=== PATIENT | male | born 1965 | race Caucasian/White ===

== ENCOUNTER → 2017-01-12 | Outpatient (CLI) | payer OTHER | LOC: FIMAGING 15:03 | PROVIDERS: ATTEND Physician Assistant Surgical | DX: M51.36 Other intervertebral disc degeneration, lumbar region (principal); Z98.1 Arthrodesis status ==

== ENCOUNTER → 2017-05-02 | Outpatient (CLI) | payer OTHER | LOC: CIMAGING 07:45 | PROVIDERS: ATTEND Internal Medicine | DX: K76.0 Fatty (change of) liver, not elsewhere classified (principal); R53.83 Other fatigue; R06.02 Shortness of breath | CPT/HCPCS: 71250-PO ==

== ENCOUNTER 2017-10-20 06:48 | Day surgery (SDC) | payer OTHER ==
[2017-10-20] MEDS ORDERED: ceFAZolin 2 GM/SWFI 2 GM/20 ML SYR IVP ONE (07:24)
[2017-10-20] MEDS ORDERED: LR 1,000 ML IV SCH (07:24)
[2017-10-20] MEDS ORDERED: LR 1,000 ML IV ONE (07:25)
[2017-10-20] MEDS ORDERED: ceFAZolin 2 GM/DEXTROSE 100 ML IV ONE (07:30)
[2017-10-20] MEDS ORDERED: EPINEPHrine 1 MG/ML INJ ONE (07:53)
[2017-10-20] MEDS ORDERED: EPINEPHrine 30 MG/30 ML MDV (0.1 MG/0.1 ML) ONE (07:53)
[2017-10-20] MEDS ORDERED: BUPIVACAINE 0.5% 30 ML SDV ONE ×2 (07:53→09:00)
--- NOTE | 2017-10-20 08:39 | PDHPUP ---
History & Physical Update H&P update statement: This history and physical update is based on an assessment of the patient which was completed after admission or registration (within 24 hours), but prior to the surgery/procedure. H&P update: H&P reviewed & patient examined, no change in patient's condition since H&P completed
[2017-10-20] MEDS ORDERED: MIDAZOLAM 2 MG/2 ML VIAL IVP ONE (08:42)
--- NOTE | 2017-10-20 08:45 | PDANEPAE ---
ANE History of Present Illness R shoulder arthroscopy ANE Past Medical History - Cardiovascular History Hx Hypertension: Yes Hx Arrhythmias: Yes Hx Chest Pain: No Hx Coronary Artery / Peripheral Vascular Disease: Yes Hx CHF / Valvular Disease: No Hx Palpitations: Yes Cardiovascular History Comment: HYPERLIPIDEMIA, atrial septal aneurysm. Patient reports usual BP at home is 120/80 - Pulmonary History Hx COPD: No Hx Asthma/Reactive Airway Disease: No Hx Recent Upper Respiratory Infection: Yes Hx Oxygen in Use at Home: No O2 in Use at Home (L/minute): O2 NOC W/CPAP Hx Sleep Apnea: Yes Sleep Apnea Screening Result - Last Documented: Positive Pulmonary History Comment: POS SLEEP APNEA W/CPAP. HX PNEUMONIA IN PAST. 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 uses sumatryptan prn - Endocrine History Hx Diabetes: No Hypothyroid: Yes Hyperthyroid: No Obesity: moderate - Renal History Hx Renal Disorders: Yes Renal History Comment: kidney stones X 2 - Liver History Hx Hepatic Disorders: No Hepatic History Comment: MILD ABN ENZYME LEVELS, fatty liver by CT - Neurological & Psychiatric Hx Hx Neurological and Psychiatric Disorders: Yes Neurological / Psychiatric History Comment: ANXIETY/DEPRESSION. Atypical migraines, s/p TIA - Cancer History Hx Cancer: No - Congenital Disorder History Hx Congenital Disorders: No - GI History GERD: moderate Hx Gastrointestinal Disorders: Yes - Other Health History Other Health History: HX - GERD - Chronic Pain History Chronic Pain: Yes (JOINTS GENERALIZED) - Surgical History Prior Surgeries: R KNEE SCOPE. SPINAL INJS. SPINAL FUSION - LUMBAR X2. RICKY CARPAL TUNNEL. LITHOTRIPSY. RUBINA. ENDOSCOPY & COLONOSCOPY. VASECTOMY ANE Review of Systems Review of Systems: - Exercise capacity METS (RN): 4 METS ANE Patient History - Allergies Allergies/Adverse Reactions: levetiracetam [From [facility]] Allergy (Verified 10/20/17 07:42) - Home Medications Home Medications: Melatonin 3 mg PO HS 03/21/11 [Last Taken 10/19/17] Aspirin [Aspirin 81mg (OTC)] 81 mg PO DAILY 12/14/12 [Last Taken 1 Week Ago ~] Levothyroxine [Synthroid 125 mcg (RX)] 125 mcg PO DAILY06 12/14/12 [Last Taken 10/20/17] Liothyronine Sodium [Cytomel 5 mcg (RX)] 5 mcg PO DAILY 12/14/12 [Last Taken ] Testosterone IM [Testosterone 100mg/ml IM inj (RX)] 50 mg IM FR 12/14/12 [Last Taken 10/14/17] clonazePAM [Klonopin (RX)] 1 mg PO DAILY 12/14/12 [Last Taken 10/19/17] Amlodipine Besylate 10/19/17 [Last Taken 10/20/17] Ibuprofen 10/19/17 [Last Taken 10/17/17] Lisinopril 10/19/17 [Last Taken 10/19/17] Metoprolol [place]/Hydrochlorothiaz [Metoprolol ER-Hctz 100-12.5 mg] 100 mg PO DAILY 10/20/17 [Last Taken 10/20/17] - NPO status NPO Since - Liquids (Date): 10/20/17 NPO Since - Liquids (Time): 06:15 NPO Since - Solids (Date): 10/19/17 NPO Since - Solids (Time): 21:00 - Smoking Hx Smoking Status: Never smoked - Family Anes Hx Family Hx Anesthesia Complications: NEG ANE Labs/Vital Signs - Vital Signs Blood Pressure: 143/86 Heart Rate: 83 Respiratory Rate: 18 O2 Sat (%): 92 Height: 182.88 cm Weight: 102.058 kg ANE Physical Exam - Airway Neck exam: FROM Mallampati Score: Class 1 Mouth exam: normal dental/mouth exam (R upper front cap) - Pulmonary Pulmonary: clear to auscultation - Cardiovascular Cardiovascular: regular rate and rhythym ANE Anesthesia Plan Anesthesia Plan: general endotracheal anesthesia Regional Anesthesia: supraclavicular BP NB
[2017-10-20] MEDS ORDERED: fentaNYL 250 MCG/5 ML INJ ONE (08:59)
[2017-10-20] MEDS ORDERED: ROCURONIUM 50 MG/5 ML VIAL ONE (09:00)
[2017-10-20] MEDS ORDERED: ROPIVACAINE HCL 150 MG/30 ML INJ ONE ×2 (09:00)
[2017-10-20] MEDS ORDERED: DEXAMETHASONE 4 MG/ML VIAL ONE (09:00)
[2017-10-20] MEDS ORDERED: PROPOFOL 200 MG/20 ML VIAL ONE (09:00)
[2017-10-20] MEDS ORDERED: clonIDINE 1 MG/10 ML VIAL EP ONE (09:00)
[2017-10-20] MEDS ORDERED: MIDAZOLAM 2 MG/2 ML VIAL ONE (09:11)
[2017-10-20] MEDS ORDERED: fentaNYL 100 MCG/2 ML INJ ONE (10:37)
[2017-10-20] MEDS ORDERED: GLYCOPYRROLATE 0.2 MG/1 ML VIAL ONE ×2 (10:40)
[2017-10-20] MEDS ORDERED: ONDANSETRON 4 MG/2 ML VIAL ONE (10:40)
[2017-10-20] MEDS ORDERED: NEOSTIGMINE METHYLSULFATE 3 MG/3 ML SYR ONE (10:40)
[2017-10-20] MEDS ORDERED: ONDANSETRON 4 MG/2 ML VIAL IVP PRN ×2 (10:46→11:47)
[2017-10-20] MEDS ORDERED: NALOXONE HCL 0.4 MG/ML INJ IVP PRN (10:46)
[2017-10-20] MEDS ORDERED: oxyCODONE IR 5 MG TAB PO PRN (10:46)
[2017-10-20] MEDS ORDERED: HYDROmorphONE/DILAUDID 2 MG/ML INJ IVP PRN (10:46)
[2017-10-20] MEDS ORDERED: fentaNYL 100 MCG/2 ML INJ IVP PRN (10:46)
[2017-10-20] MEDS ORDERED: ACETAMINOPHEN 500 MG TAB PO PRN (10:46)
[2017-10-20] MEDS ORDERED: ePHEDrine SULFATE 25 MG/5 ML SYR ONE (10:50)
[2017-10-20] MEDS ORDERED: PHENYLEPHRINE HCL 100 MCG/ML SYR ONE (10:56)
[2017-10-20] MEDS ORDERED: OXYCODONE/APAP 5/325 TAB PO PRN (11:47)
[2017-10-20] MEDS ORDERED: ONDANSETRON DISINTEGRATING 4 MG TAB PO PRN (11:47)
--- NOTE | 2017-10-20 11:47 | POSTOPPROG ---
Post Op Note Date of Operation: 10/20/17 Surgeon: Maryanne Rosario Wallpaperer: Tasha Rhoades Anesthesiologist: Dr. Jarod Bar Anesthesia: GET(General Endotracheal) Pre-op Diagnosis: right shoulder impingement, biceps pathology Post-op Diagnosis: right shoulder impingement, biceps pathology Indication: right shoulder pain Procedure: right shoulder SAD, DCE, debridement, biceps tenodesis, bone marrow aspirat Inf/Abcess present in the surg proc area at time of surgery?: No EBL: Minimal Complications: none
--- NOTE | 2017-10-20 11:55 | SOAPPROG ---
SOAP Progress Note Assessment/Plan: Assessment/Plan: 51y/o male s/p right shoulder SAD, DCE, debridement, biceps tenodesis, bone marrow aspiration - orders as written - will send in prescription for Duexis to patient's pharmacy as discussed - sling to be worn, avoid bicep ROM - dc when PACU criteria met - call with issues or concerns 10/20/17 11:54 Subjective: No pain Objective: Vital Signs Temp Pulse Resp BP Pulse Ox 36.4 C 83 18 143/86 H 92 10/20/17 07:30 10/20/17 10:46 10/20/17 10:46 10/20/17 10:46 10/20/17 10:46 NAD, waking from anesthesia EOMi, face symmetric MAEx4 incisions clean, dressed ICD10 Worksheet Patient Problems: Problems Problem Status Onset Transient ischemic attack Active
[2017-10-20] MEDS ORDERED: KETOROLAC 15 MG/1 ML SDV IVP ONE (12:11)
[2017-10-20 12:58] VITALS: BP 118/76
--- NOTE | 2017-10-20 13:02 | POSTANESTH ---
Post Anesthetic Evaluation Cardiovascular Status: Similar to Pre-Op Cond Respiratory Status: Similar to Pre-op Cond. Level of Consciousness/Mental Status: Can Participate in Eval Pain Control: Adequate, Prn Tx Ordered Nausea/Vomiting Control: Adequate, Prn Tx Ordered Complications Possibly Related to Anesthesia: None Noted
--- NOTE | 2017-10-20 14:32 | GOP ---
[f rep st] OPERATIVE REPORT DATE OF OPERATION: 10/20/2017 SURGEON: Maryanne Rosario MD TWENTY ONE DEALER: RICH Salinas. ANESTHESIA: General with interscalene block. PREOPERATIVE DIAGNOSIS: Biceps tendonitis with superior labrum anterior and posterior tear, impingem ent syndrome, and acromioclavicular arthritis, right shoulder. POSTOPERATIVE DIAGNOSIS: Biceps tendonitis with superior labrum anterior and posterior tear, impinge ment syndrome, and acromioclavicular arthritis, right shoulder. PROCEDURE PERFORMED: 1. Arthroscopic debridement of SLAP tear with subacromial decompression, distal clavicle excision, a nd biceps tenodesis, right shoulder. 2. Bone marrow biopsy. FINDINGS: The diagnostic arthroscopy of the right shoulder was performed with the following findings . The glenohumeral joint was normal in appearance. The articular cartilage was normal. There was n o chondromalacia. The labrum was inspected and there was a large SLAP tear extending from the 10 o'c lock to the 2 o'clock position with instability of the biceps anchor. There was a bifid biceps tendo n with 1 segment extending down to the subscapularis tendon. The 2nd ran its normal course through t he joint. There was instability of the biceps anchor. The inferior portion of the bifid biceps tend on was released from the subscapularis tendon and then the biceps tendon was released for later tenod esis. Extensive debridement of the superior labrum was performed. The rotator cuff was inspected an d the patient was noted to have mild partial thickness tearing of the articular side involving the an terior fibers of the supraspinatus. The remainder of the rotator cuff was normal including the subsc apularis. The scope was then placed in the subacromial space and the patient had severe subacromial bursitis. The subacromial bursa was debrided. The rotator cuff was inspected from the bursal side a nd noted to be normal in appearance. The patient did have a large anterolateral subacromial spur, wh ich was removed with the bur. Approximately 6-7 mm of the thickness of the anterolateral acromion wa s removed. The subacromial decompression was carried across to the AC joint. The patient had a larg e spur on the inferior aspect of the clavicle, as well. Once the subacromial decompression was compl eted, the undersurface the acromion was smoothed with a rasp and then the instrumentation was removed . A 3 cm incision was made along the distal end of the clavicle. Incision was carried down through the subcutaneous tissue to the AC joint. The AC joint was incised in a T-fashion and the fascia was retracted. The distal 1 cm of the clavicle was excised. The patient was noted to have severe degene rative changes in the AC joint. Finally, the biceps tendon was retrieved from the bicipital groove a nd a drill hole was placed at the base of the bicipital groove. The tendon was inserted and fixated with a 7 x 23 [employer] tenodesis screw. Excellent fixation was obtained. ESTIMATED BLOOD LOSS: Minimal. DESCRIPTION OF PROCEDURE: The patient was taken to the operating room, placed in the supine position on the operating table. Following placement of a supraclavicular block and induction of adequate ge neral inhalation anesthesia, the patient was turned to the lateral decubitus position and the shoulde r and arm were prepped and draped in usual sterile manner. The patient received 2 g of IV Ancef. Th e arthroscope was introduced through a posterior portal and the instrumentation through an anterior p ortal. A diagnostic arthroscopy was performed with the above-noted findings. Our attention was turn ed first to the intra-articular pathology. The shaver was used to debride the SLAP tear and the sola ps tendon was released with a basket. Once this was completed, the instruments were placed in the delarosa bacromial space, and a lateral working portal was created. Again, extensive debridement of the subac romial space was performed. The undersurface of the acromion was cleared and then a subacromial deco mpression was performed. The rasp was used to smooth the undersurface of the acromion. Excellent de compression of the subacromial space was achieved. The instrumentation was then removed, and a 3 cm incision was made along the distal on the clavicle. Incision was carried down through the subcutaneo us tissue to the AC joint. The fascia overlying the AC joint was incised in a T fashion and retracte d and then, using the saw, the distal 1 cm of the clavicle was excised. The wound was irrigated out and the fascia was repaired using 0 Vicryl followed by 2-0 Vicryl in the subcutaneous tissue, and 4-0 Vicryl in the skin. Steri-Strips were applied. Next, the patient was turned back to the beach leonides r position and a 4 cm incision was made along the bicipital groove. Incision was carried down throug h subcutaneous tissue to the deltoid. The deltoid was split in line with the incision and retracted with the [place] retractor. The bicipital groove was located and the tendon was retrieved. A drill h ole was placed at the base of the bicipital groove and then the tendon was inserted and fixated with a 7 x 23 Bio tenodesis screw. The bone marrow biopsy was taken from the humerus and sent to patholog y for evaluation. The wound was irrigated and closed using 2-0 Vicryl followed by 4-0 Vicryl in a ru nning subcuticular fashion. Steri-Strips and sterile dressings were applied. The patient tolerated the procedure well. There were no complications. Estimated blood loss minimal. Final sponge, needl e counts were correct. The patient was transported to the recovery room in good condition. /[id number]/MODL
== END 2017-10-20 14:30 | disposition home or self-care (01) ==
LOC: FSGY 06:48
PROVIDERS: ATTEND Orthopaedic Surgery
PROC: 0LS10ZZ Reposition Right Shoulder Tendon, Open Approach (ICD-10-PCS; principal; 2017-10-20 08:45)
PROC: [UNRECOGNIZED PROCEDURE] (principal; 2017-10-20 08:45)
PROC: 0RNJ4ZZ Release Right Shoulder Joint, Percutaneous Endoscopic Approach (ICD-10-PCS; principal; 2017-10-20 08:45)
PROC: 07DR0ZX Extraction of Iliac Bone Marrow, Open Approach, Diagnostic (ICD-10-PCS; principal; 2017-10-20 08:45)
DX: M75.41 Impingement syndrome of right shoulder (principal); M75.21 Bicipital tendinitis, right shoulder; M19.011 Primary osteoarthritis, right shoulder; M24.111 Other articular cartilage disorders, right shoulder; I10 Essential (primary) hypertension; E78.5 Hyperlipidemia, unspecified; G47.33 Obstructive sleep apnea (adult) (pediatric); Z86.73 Personal history of transient ischemic attack (TIA), and cerebral infarction without residual deficits; Z98.1 Arthrodesis status
CPT/HCPCS: C1713; J0171; J0690; J0735; J1100; J1885; J2250; J2370; J2405; J2704; J2710; J2795; J3010

== ENCOUNTER → 2018-04-19 | Outpatient (CLI) | payer OTHER | LOC: FIMAGING 11:44 | PROVIDERS: ATTEND Internal Medicine Cardiovascular Disease | DX: M79.604 Pain in right leg (principal); M79.605 Pain in left leg; R06.02 Shortness of breath ==

== ENCOUNTER 2018-05-17 06:35 | Day surgery (SDC) | payer OTHER ==
[2018-05-17] MEDS ORDERED: fentaNYL 100 MCG/2 ML INJ IVP ONE (06:37)
[2018-05-17] MEDS ORDERED: BENZOCAINE UNIT DOSE SPRAY HURRICAINE MM ONE (06:37)
[2018-05-17] MEDS ORDERED: MIDAZOLAM 2 MG/2 ML VIAL IVP ONE (06:37)
[2018-05-17] MEDS ORDERED: NS 500 ML IV ONE (06:37)
[2018-05-17 07:05] LABS: PLATELET COUNT 244 10^3/uL (150-400)
--- NOTE | 2018-05-17 07:19 | PDANEPAE ---
ANE History of Present Illness hx of TIA and stroke ANE Past Medical History - Cardiovascular History Hx Hypertension: Yes Hx Arrhythmias: Yes Hx Chest Pain: No Hx Coronary Artery / Peripheral Vascular Disease: Yes Hx CHF / Valvular Disease: No Hx Palpitations: Yes Cardiovascular History Comment: HYPERLIPIDEMIA, atrial septal aneurysm. Patient reports usual BP at home is 120/80 - Pulmonary History Hx COPD: No Hx Asthma/Reactive Airway Disease: No Hx Recent Upper Respiratory Infection: Yes Hx Oxygen in Use at Home: No Hx Sleep Apnea: Yes Pulmonary History Comment: POS SLEEP APNEA W/CPAP. HX PNEUMONIA IN PAST. Had URI about 3 weeks ago - Neurologic History Hx Cerebrovascular Accident: No Hx Seizures: No Hx Dementia: No Neurologic History Comment: stroke with left side weakness 6 years ago, then TIA off and on last 6 years, mainly speech and verbal understanding for several minutes at a time, sometimes several times a month. uses sumatryptan prn - Endocrine History Hx Diabetes: No Hypothyroid: Yes Hyperthyroid: No Obesity: yes, mild - Renal History Hx Renal Disorders: Yes Renal History Comment: kidney stones X 2 - Liver History Hx Hepatic Disorders: No Hepatic History Comment: MILD ABN ENZYME LEVELS, fatty liver by CT - Neurological & Psychiatric Hx Hx Neurological and Psychiatric Disorders: Yes Neurological / Psychiatric History Comment: ANXIETY/DEPRESSION. Atypical migraines, s/p TIA - Cancer History Hx Cancer: No - Congenital Disorder History Hx Congenital Disorders: No - GI History GERD: mild Hx Gastrointestinal Disorders: Yes - Other Health History Other Health History: HX - GERD - Chronic Pain History Chronic Pain: Yes (JOINTS GENERALIZED) - Surgical History Prior Surgeries: R KNEE SCOPE. SPINAL INJS. SPINAL FUSION - LUMBAR X2. RICKY CARPAL TUNNEL. LITHOTRIPSY. RUBINA. ENDOSCOPY & COLONOSCOPY. VASECTOMY ANE Review of Systems Review of systems is: negative Review of Systems: - Exercise capacity METS (RN): 4 METS ANE Patient History - Allergies Allergies/Adverse Reactions: levetiracetam [From [facility]] Adverse Reaction (Mild, Verified 05/17/18 07:04) - Home Medications Home medications: home medication list seen and reviewed Home Medications: Melatonin 3 mg PO HS 03/21/11 [Last Taken 10/19/17] Aspirin [Aspirin 81mg (OTC)] 81 mg PO DAILY 12/14/12 [Last Taken 1 Week Ago ~] Levothyroxine [Synthroid 125 mcg (RX)] 125 mcg PO DAILY06 12/14/12 [Last Taken 10/20/17] Liothyronine Sodium [Cytomel 5 mcg (RX)] 5 mcg PO DAILY 12/14/12 [Last Taken ] Testosterone IM [Testosterone 100mg/ml IM inj (RX)] 50 mg IM FR 12/14/12 [Last Taken 10/14/17] clonazePAM [Klonopin (RX)] 1 mg PO DAILY 12/14/12 [Last Taken 10/19/17] Amlodipine Besylate 10/19/17 [Last Taken 10/20/17] Ibuprofen 10/19/17 [Last Taken 10/17/17] Lisinopril 10/19/17 [Last Taken 10/19/17] Metoprolol [place]/Hydrochlorothiaz [Metoprolol ER-Hctz 100-12.5 mg] 100 mg PO DAILY 10/20/17 [Last Taken 10/20/17] Albuterol Sulfate [ALBUTEROL SULFATE] 2 puffs IT Q2HRS WHILE AWAKE 05/17/18 [ Last Taken Unknown] Venlafaxine Xr [Effexor Xr] 150 mg PO DAILY 05/17/18 [Last Taken 05/16/18] - NPO status NPO Status: no food or drink >8 hours - Anes Hx Anes Hx: no prior problems - Smoking Hx Smoking Status: Never smoked Marijuana use: No - Alcohol Use Alcohol Use: Rarely - Family Anes Hx Family Anes Hx: none Family Hx Anesthesia Complications: NEG ANE Labs/Vital Signs - Labs Result Diagrams: 05/17/18 07:00 - Vital Signs Height: 185.42 cm Weight: 115.666 kg ANE Physical Exam - Airway Neck exam: FROM, increased neck circumference, short neck Mallampati Score: Class 3 Mouth exam: normal dental/mouth exam - Pulmonary Pulmonary: no respiratory distress, clear to auscultation - Cardiovascular Cardiovascular: regular rate and rhythym, no murmur, rub, or gallop - ASA Status ASA Status: III ANE Anesthesia Plan Anesthesia Plan: GA with mask Total IV Anesthesia: Yes
[2018-05-17] MEDS ORDERED: PROPOFOL/EMULSION 500 MG/50 ML BOTTLE IV ONE (07:53)
[2018-05-17] MEDS ORDERED: LIDOCAINE 2% 2 ML INJ ONE (07:55)
--- NOTE | 2018-05-17 08:10 | PDHPUP ---
History & Physical Update H&P update statement: This history and physical update is based on an assessment of the patient which was completed after admission or registration (within 24 hours), but prior to the surgery/procedure. 52 yo male with hx of CVA. Here for RUBINA to assess for PFO and cardiac eitiology of CVA. H&P update: H&P reviewed & patient examined, no change in patient's condition since H&P completed
[2018-05-17] MEDS ORDERED: NALOXONE HCL 0.4 MG/ML INJ IVP PRN (08:41)
--- NOTE | 2018-05-17 08:41 | POSTANESTH ---
Post Anesthetic Evaluation Cardiovascular Status: Normal, Stable Respiratory Status: Normal, Stable Level of Consciousness/Mental Status: Can Participate in Eval, Moderately Sleepy Pain Control: Adequate, Prn Tx Ordered Nausea/Vomiting Control: Adequate, Prn Tx Ordered Complications Possibly Related to Anesthesia: None Noted
--- NOTE | 2018-05-17 09:04 | ECHO ---
[email or web address] [address] Main: [phone] Fax: Transesophageal Echocardiography Name: GIA CASPER MR#: [id number] Study Date: 05/17/2018 Study Time: 07:37 AM Date of : 1965 Age: 52 year(s) Height: ( ) Weight: ( ) BSA: Gender: Male Examination: RUBINA Indication: Eval PFO Image Quality: Adequate Contrast: Requested by: Julián Yang Heart Rate: Rhythm: BP: / Procedure Staff Human Relations Manager: Peyton Marquez [facility] Reading Physician: Julián Yang MD Requesting Provider: RUBINA Exam Details Patient Consent: Risks, alternatives of procedure explained to patient, informed consent obtained. Conclusions: Normal size left ventricle. Normal global systolic LV function. Normal RV function. The left atrium is normal in size. An agitated saline study was performed and was positive for intracardiac shunting. The left atrial appendage is unilobular. Good color flow doppler in the left atrial appendage. No thrombus in left appendage. The mitral valve is normal in appearance and function. The aortic valve is tri-leaflet. The tricuspid valve is normal in appearance and function. Measurements: Chambers Valvular Assessment AV/MV Valvular Assessment TV/PV Normal Normal Normal Name Value Range Name Value Range Name Value Range Additional Measurements: Findings: Left Ventricle: Normal size left ventricle. Normal global systolic LV function. No regional wall motion abnormality. Patient: GIA CASPER Study Date: 05/17/2018 Page 1 of 2 07:37 AM Right Ventricle: Normal size right ventricle. Normal RV function. Left Atrium: The left atrium is normal in size. An agitated saline study was performed and was positive for intracardiac shunting. Atrial septal aneurysm. . Left Atrial Appendage: The left atrial appendage is unilobular. Good color flow doppler in the left atrial appendage. No thrombus in left appendage. Right Atrium: The right atrium is normal in size. Mitral Valve: The mitral valve is normal in appearance and function. Trivial mitral valve regurgitation. No mitral stenosis is present. Aortic Valve: The aortic valve is tri-leaflet. There is no significant aortic valve regurgitation. No aortic valve stenosis is present. Tricuspid Valve: The tricuspid valve is normal in appearance and function. Trivial tricuspid valve regurgitation. Pulmonic Valve: The pulmonic valve is normal in appearance and function. Aorta: The aorta is normal. Pericardium: No pericardial effusion. l1n (No Signature Object) Patient: GIA CASPER Study Date: 05/17/2018 Page 2 of 2 07:37 AM [id number]
--- NOTE | 2018-05-17 09:13 | CPR ---
DATE OF PROCEDURE: 05/17/2018 PROCEDURE PERFORMED: Transesophageal echocardiogram with agitated saline contrast study. INDICATION FOR PROCEDURE: History of CVA. DESCRIPTION OF PROCEDURE: After informed consent was obtained for transesophageal echocardiogram as well as anesthesia, patient had a bite block placed. Once appropriate level of sedation was achieved with propofol, RUBINA probe was passed without incident. RUBINA probe was used to take detailed images of all cardiac structures with primary focus on the interatrial septum. Color Doppler imaging was obta ined. Agitated saline contrast study was performed. There was evidence of atrial septal aneurysm as well as patent foramen ovale as seen on color Doppler as well as agitated saline contrast study. Pl ease see echo report for remainder of details. Patient tolerated the procedure well. There were no postoperative complications. PLAN: Patient will return to his primary peanut sheller, Dr. Win, for consideration of PFO closure . /[id number]/MODL
== END 2018-05-17 10:50 | disposition home or self-care (01) ==
LOC: FCATH 06:35
PROVIDERS: ATTEND Internal Medicine Cardiovascular Disease
PROC: B246ZZ4 Ultrasonography of Right and Left Heart, Transesophageal (ICD-10-PCS; principal; 2018-05-17)
DX: Q21.1 Atrial septal defect (principal); R06.02 Shortness of breath; I69.354 Hemiplegia and hemiparesis following cerebral infarction affecting left non-dominant side; I37.0 Nonrheumatic pulmonary valve stenosis; I25.10 Atherosclerotic heart disease of native coronary artery without angina pectoris; F32.9 Major depressive disorder, single episode, unspecified; I10 Essential (primary) hypertension; E03.9 Hypothyroidism, unspecified; G43.909 Migraine, unspecified, not intractable, without status migrainosus; G25.81 Restless legs syndrome; G47.30 Sleep apnea, unspecified; G89.29 Other chronic pain; E78.5 Hyperlipidemia, unspecified; Z87.820 Personal history of traumatic brain injury; Z82.49 Family history of ischemic heart disease and other diseases of the circulatory system; Z98.1 Arthrodesis status
CPT/HCPCS: J2250; J2704

== ENCOUNTER → 2018-06-06 | Outpatient (CLI) | payer OTHER | LOC: FIMAGING 17:07 | PROVIDERS: ATTEND Internal Medicine Pulmonary Disease | DX: R06.00 Dyspnea, unspecified (principal) ==